=== PATIENT | female | born 1990 | race Caucasian/White ===

== ENCOUNTER 2017-01-12 10:30 | Day surgery (SDC) | payer OTHER ==
[2017-01-06 16:56] LABS: BASOPHILS 0.6 %; BASOPHILS ABSOLUTE 0.05 10/3/uL (0.0-0.16); EOSINOPHILS 2.1 %; EOSINOPHILS ABSOLUTE 0.18 10/3/uL (0.0-0.53); HEMATOCRIT 39.6 % (36.0-48.0); HEMOGLOBIN 12.6 g/dL (12.0-16.0); IMMATURE GRANULOCYTES 0.1 %; IMMATURE GRANULOCYTES ABSOLUTE 0.01 10/3/uL (0.0-0.11); LYMPHOCYTES 34.8 %; LYMPHOCYTES ABSOLUTE 2.97 10/3/uL (0.67-4.30); MEAN CORPUS HGB CONC 31.8 g/dL (32.0-36.0); MEAN CORPUSCULAR HEMOGLOB 24.5 pg (26.0-34.0); MEAN PLATELET VOLUME 9.7 fL (9.2-13.0); MONOCYTES 7.3 %; MONOCYTES ABSOLUTE 0.62 10/3/uL (0.21-1.20); NEUTROPHILS 55.1 %; NEUTROPHILS ABSOLUTE 4.71 10/3/uL (2.02-8.40); PLATELET COUNT 290 10/3/uL (150-400); RBC DISTRIBUTION WIDTH 15.4 % (12.0-16.0); RED CELL COUNT 5.14 10/6/uL (4.0-5.6); WHITE BLOOD CELLS 8.5 10/3/uL (4.5-10.5)
[2017-01-06 16:57] LABS: MANUAL DIFF NO %
[2017-01-06 17:05] LABS: BUN (BLOOD UREA NITROGEN) 14 MG/DL (6-23); CALCIUM, SERUM 8.9 MG/DL (8.5-10.4); CHLORIDE, SERUM 106 MMOL/L (96-112); CO2 (CARBON DIOXIDE) 29 MMOL/L (24-34); CREATININE 0.75 MG/DL (0.55-1.02); GFR AFRICAN AMERICAN 128 ML/MIN (>=60); GFR NON AFRICAN AMERICAN 110 ML/MIN (>=60); GLUCOSE, SERUM 86 MG/DL (60-99); POTASSIUM, SERUM 3.6 MMOL/L (3.5-5.3); SODIUM, SERUM 143 MMOL/L (135-148)
--- NOTE | ~2017-01-12 | OP ---
Record Of Operation [facility] [address] [place]. [address] NAME: JANIE FORD : 89 [place] [facility] [place] [id number] AGE: 26 ADM/REG DATE : 01/12/17 MR#: [id number] REPORT SERV DATE: 01/12/17 DICTATED BY: KAROLINA DE LA ROSA DATE: 01/12/17 REPORT STATUS : Draft TRANSCRIBED BY: MODL DATE: 01/12/17 DATE OF PROCEDURE: 01/12/2017 SERVICE: Otolaryngology. SURGEON: Karolina De La Rosa MD. PREOPERATIVE DIAGNOSES: 1. Deviated nasal septum. 2. Chronic left maxillary sinusitis. POSTOPERATIVE DIAGNOSES: 1. Deviated nasal septum. 2. Chronic left maxillary sinusitis. PROCEDURES: 1. Septoplasty. 2. Endoscopic maxillary antrostomy with removal of contents. ANESTHESIA: General endotracheal anesthesia. ESTIMATED BLOOD LOSS: 7 mL. COMPLICATIONS: None. SPECIMENS: Nasal bone and cartilage. FINDINGS: The patient had a severely deviated bony nasal septum superiorly into the left. She also had chronic outflow obstruction of the left maxillary sinus with large mucous ball that was removed. STATEMENT OF MEDICAL NECESSITY: This is a 26-year-old with primarily left-sided symptoms, who had been treated by an aluminum shingle roofer with immunotherapy, was basically controlled, but still having headaches, and facial symptoms on the left-hand side. CT scanning identified the above findings and I recommended the above procedure to help resolve them. STATEMENT OF OPERATION: The patient was brought to the operating room in supine position, transferred over to the operating table. All pressure points were padded and general endotracheal anesthesia was established. The nose was prepared with 4% topical cocaine pledgets. She was then draped out for the procedure. The pledgets were removed. A left- sided [place] incision was made with a 15 blade. The septal flap was elevated in the subperichondrial and subperiosteal plane. The bony cartilaginous junction was gently disjointed with a Lee elevator. The contralateral periosteum was elevated gently with a Emeterio elevator. Then, using Capellan scissors, high superior cut was used to isolate the portion of bony nasal septum to the left followed by an inferior cut. A portion of the deviated septum was removed with a Daquan forceps. The septal flaps were redraped and Record Of Operation [facility] [id number] [place]. [address] NAME: JANIE FORD : 89 [place]US [place] [facility] [place] [id number] AGE: 26 ADM/REG DATE : 01/12/17 MR#: [id number] REPORT SERV DATE: 01/12/17 DICTATED BY: KAROLINA DE LA ROSA DATE: 01/12/17 REPORT STATUS : Draft TRANSCRIBED BY: MODL DATE: 01/12/17 closed with 4-0 chromic sutures. Next, using a 0 degree scope, injections were performed with 1% lidocaine with epinephrine and the septal flaps, and in the root of the middle turbinate face of the middle turbinate and lateral nasal charles. Next, the middle turbinate was gently medialized with a [place] elevator. Once this was completed, attempts were made to cannulate the sinus with the Acclarent balloon catheter tip. Unfortunately, the uncinate process was completely plastered down to over the middle meatus, and I was then able to be cannulate it. I created a nishi-maxillary ostium in the standard fashion removing any uncinate process completely. Once I had full visualization and a wide maxillary antrostomy, there was a large mucous retention cyst present. This was removed with suction and with the [place] forceps. I irrigated the sinus out thoroughly with about 60 mL of warm saline. I then placed Stammberger Sinu-Foam in the sinus cavity. This concluded the case. I placed Bran splints covered in bacitracin in each side of the nose secured to the anterior septum with a 3-0 nylon. The stomach and oropharynx were suctioned clear of blood and fluid in the orogastric tube. She was turned over to Anesthesia, awoken, was extubated, and transferred to the PACU in stable condition. PS/MODL Karolina De La Rosa MD / [id number] CC: MD Juan José Peters III, M.D.
[~2017-01-12 10:30] MED LIST: ALLEGRA180 PO; CELEXA20 PO
== END 2017-01-12 17:49 | disposition home or self-care (01) ==
LOC: SDC 10:30
PROVIDERS: Otolaryngology
PROC: 099R4ZZ Drainage of Left Maxillary Sinus, Percutaneous Endoscopic Approach (ICD-10-PCS; 2017-01-12)
PROC: 09CM0ZZ Extirpation of Matter from Nasal Septum, Open Approach (ICD-10-PCS; principal; 2017-01-12 11:45)
DX: J32.0 Chronic maxillary sinusitis (principal); J34.2 Deviated nasal septum; K21.9 Gastro-esophageal reflux disease without esophagitis; F32.9 Major depressive disorder, single episode, unspecified; Z79.899 Other long term (current) drug therapy
CPT/HCPCS: 80048; 84703; 85025; 88300; 88305; 93005; A9270-GY; C1725; C1726; J2250; J2370; J2405; J2550; J2710; J3010